=== PATIENT | female | born 1965 | race African-American/Black ===

== ENCOUNTER 2019-07-16 16:47 | Emergency (ER) | payer OTHER ==
[~2019-07-16] VITALS: Ht 149.9 cm; Wt 72.6 kg
[~2019-07-16 16:47] MED LIST: ACETAMINOPHEN-1 EAC1 PO; ADVAIR 100-501 EACH INH; BC POWDER PACK1 EAC1 PO; BRIO INHALER; FLEXERIL PO; LEVOTHYROXIN0.112 M1 PO; NORCO 5-325 TA1 EACH PO; PHENTERMINE H37.5 MG PO; SINGULAIR 10 MG10 M1 PO; TOPAMAX50 MG PO; VITAMINC500 PO; ZOFRAN ODT4 MG PO
[2019-07-16] MEDS ORDERED: CALCITRIOL0.25 MCG PO (17:37)
[2019-07-16] MEDS ORDERED: SYNTHROID137 MC1 PO (17:38)
[2019-07-16] MEDS ORDERED: NORVASC10 MG PO (17:38)
[2019-07-16] MEDS ORDERED: VITAMIN D1000 UNI1 PO (17:39)
[2019-07-16] MEDS ORDERED: VENTOLIN HFA 1818 GM INH (17:40)
[2019-07-16] MEDS ORDERED: VITAMINC500 PO (17:40)
[2019-07-16 17:54] LABS: ABSOLUTE NEUTROPHILS 4.4 thou/uL (1.4-8.2); BASOPHILS 0.5 % (0.0-2.0); EOSINOPHILS 1.3 % (0.0-3.0); HEMATOCRIT 44.6 % (37.0-47.0); LYMPHOCYTES 21.5 % (24.0-44.0); MCH 30.2 pg (26.0-34.0); MCHC 33.6 g/dL (28.0-37.0); MCV 89.8 fL (80.0-100.0); MONOCYTES 6.7 % (1.0-8.0); PLATELET COUNT 235 thou/uL (150-400); RBC 4.96 mil/uL (4.20-5.00); RDW 14.3 % (10.5-14.5); WBC 6.3 thou/uL (4.0-11.0)
[2019-07-16 17:58] VITALS: BP 154/108
[2019-07-16 18:01] LABS: ANION GAP 12 mmol/L (7-16); BUN 12 mg/dL (7-18); CALCIUM 9.9 mg/dL (8.5-10.1); CHLORIDE 102 mmol/L (98-107); CO2 26 mmol/L (21-32); CREATININE 0.6 mg/dL (0.6-1.0); GLUCOSE 86 mg/dL (74-106); POTASSIUM 3.4 mmol/L (3.5-5.1); SODIUM 140 mmol/L (136-145)
[2019-07-16 18:12] LABS: TROPONIN-I <0.06 ng/mL (<0.06)
[2019-07-16] MEDS ORDERED: IBUPROFEN 600600 M1 PO (18:33)
--- NOTE | 2019-07-17 11:54 | EKG ---
[facility] [place] [address] ELECTROCARDIOGRAM REPORT Name: JAMES VILLANUEVA [id number] ������������������ Admission: 07/16/19 ������������������ Attend Phys: Discharge: 07/16/19 ������������������ Date of : 65 Report #: [id number] ����������������������������������������������������������������� [id number] THIS REPORT FOR: //name// [facility] ED Test Date: 2019-07-16 Test Time: 17:47:43 Pat Name: JAMES VILLANUEVA Department: Room: Gender: F Working Foreman: JAIMIE : 1965 Requested By: Abner Altamirano Order Number: [id number] MD: Salo Ch Measurements Intervals [place] Rate: 93 P: 46 ME: 159 QRS: -10 QRSD: 80 T: 8 QT: 361 QTc: 449 Interpretive Statements Sinus rhythm Anteroseptal infarct, old Compared to ECG 02/14/2009 10:28:46 Septal Q waves are more prominent Electronically Signed On 07-17-2019 11:54:04 CDT by Salo Ch [email or web address] ��������������������������������������������� <ELECTRONICALLY SIGNED> ���������������������������������������� By: Salo Ch MD, [facility] ��������������������������������������������� 07/17/19 1154 [id number] Salo Ch MD, FACC /EPI
== END 2019-07-16 18:57 | disposition home or self-care (01) ==
LOC: ER 16:47
PROVIDERS: Nurse Practitioner
DX: T75.4XXA Electrocution, initial encounter (principal); J45.909 Unspecified asthma, uncomplicated; I10 Essential (primary) hypertension; Z90.710 Acquired absence of both cervix and uterus; Z98.890 Other specified postprocedural states; Z88.6 Allergy status to analgesic agent; Z88.0 Allergy status to penicillin; Z88.1 Allergy status to other antibiotic agents; Z88.8 Allergy status to other drugs, medicaments and biological substances; W86.8XXA Exposure to other electric current, initial encounter; Y93.89 Activity, other specified; Y92.89 Other specified places as the place of occurrence of the external cause; Y99.8 Other external cause status